=== PATIENT | male | born 1975 | race Two or more races ===

== ENCOUNTER 2017-04-10 02:32 | Emergency (ER) | payer SELFPAY ==
[~2017-04-10] VITALS: Ht 170.2 cm; Wt 83.0 kg
[2017-04-10 02:42] VITALS: BP 141/90
== END 2017-04-10 03:13 | disposition left against medical advice (07) ==
LOC: ED 03:07
DX: F10.120 Alcohol abuse with intoxication, uncomplicated (principal); I10 Essential (primary) hypertension
CPT/HCPCS: 99283